=== PATIENT | male | born 2000 | race Caucasian/White ===

== ENCOUNTER 2024-03-27 06:20 | Emergency (ER) | payer OTHER ==
[~2024-03-27] VITALS: Ht 175.3 cm; Wt 66.2 kg
[~2024-03-27 06:20] MED LIST: ACET325 PO
[2024-03-27] MEDS ORDERED: IBUP600 PO (09:40)
[2024-03-27] MEDS ORDERED: CYCL10 PO (09:40)
[2024-03-27 09:50] VITALS: BP 120/80
== END 2024-03-27 09:50 | disposition home or self-care (01) ==
LOC: ER 06:20
DX: M25.512 Pain in left shoulder (principal); V89.2XXA Person injured in unspecified motor-vehicle accident, traffic, initial encounter
CPT/HCPCS: 71046; 73030; 99283-25

== ENCOUNTER 2024-07-11 10:26 | Inpatient (IN) | payer OTHER ==
[~2024-07-11] VITALS: Ht 177.8 cm; Wt 70.3 kg
[~2024-07-11 10:26] MED LIST changes: +Amoxicillin875 MG PO; +CYCL10 PO; +IBUP600 PO; +IBUP800 PO; +ONDA4ODT MM
[2024-07-11] MEDS ORDERED: Ondansetron HCl 2 MG / ML 2ML Vial IV ONE (10:50)
[2024-07-11] MEDS ORDERED: Morphine Sulfate 4 MG/1 ML Injection IV ONE (10:50)
[2024-07-11 10:55] LABS: BASOPHILS ABSOLUTE AUTO 0.03 K/mm3 (0.00-0.23); BASOPHILS PERCENT AUTO 0 % (0-2); EOSINOPHILS ABSOLUTE AUTO 0.08 K/mm3 (0.00-0.68); EOSINOPHILS PERCENT AUTO 1 % (0-6); Hematocrit 40.7 % (37.0-53.0); Hemoglobin 13.8 g/dL (13.5-17.5); IMMATURE GRAN ABSOLUTE AUTO 0.04 K/mm3 (0.00-0.10); IMMATURE GRAN PERCENT AUTO 0 % (0-1); LYMPHOCYTES ABSOLUTE AUTO 1.73 K/mm3 (0.84-5.20); LYMPHOCYTES PERCENT AUTO 14 % (21-46); MONOCYTES ABSOLUTE AUTO 1.18 K/mm3 (0.16-1.47); MONOCYTES PERCENT AUTO 10 % (4-13); Mean Corpuscular HGB 30.4 pg (26.0-34.0); Mean Corpuscular HGB Conc 33.9 g/dL (31.5-36.5); Mean Corpuscular Volume 90 fL (80-100); Mean Platelet Volume 9.8 fL (9.1-12.4); NEUTROPHILS ABSOLUTE AUTO 9.06 K/mm3 (1.96-9.15); NEUTROPHILS PERCENT AUTO 75 % (41-73); Platelet Count 227 K/mm3 (150-400); RDW Coefficient Variation 11.8 % (11.7-14.2); RDW Standard Deviation 38.5 fL (35.1-46.3); Red Blood Cell Count 4.54 M/mm3 (4.30-5.90); White Blood Cell Count 12.12 K/mm3 (4.00-11.30)
[2024-07-11 11:18] LABS: Albumin, Blood 4.5 g/dL (3.4-5.0); Albumin/Globulin Ratio 1.4 (0.8-1.8); Bilirubin, Total 1.1 mg/dL (0.1-1.0); Calcium, Blood 9.2 mg/dL (8.5-10.1); Globulin, Blood 3.2 g/dL (2.2-4.0); Potassium, Blood 3.9 mmol/L (3.5-5.5); Total Protein, Blood 7.7 g/dL (6.4-8.2)
[2024-07-11] MEDS ORDERED: Midazolam HCl 1MG / ML 2ML Vial IV ONE (11:50)
[2024-07-11] MEDS ORDERED: OxyCODONE 5 mg/Acetamin 325 mg TABLET PO ONE (12:30)
[2024-07-11] MEDS ORDERED: OxyCODONE HCL 5 MG TAB PO PRN (13:35)
[2024-07-11] MEDS ORDERED: Lactated Ringer's 1,000 ML IV SCH (13:35)
[2024-07-11] MEDS ORDERED: FLU VACC TS2024-25(6MOS UP)/PF 45 MCG/0.5 ML SYRINGE IM SCH (13:35)
[2024-07-11] MEDS ORDERED: Ondansetron HCl 2 MG / ML 2ML Vial IV PRN (13:40)
[2024-07-11] MEDS ORDERED: Ketorolac Tromethamine 15mg Vial IV PRN (13:45)
[2024-07-11 15:58] VITALS: BP 126/99
--- NOTE | 2024-07-11 16:51 | NUR ---
PT ARRIVED TO RM 212 FROM ER AT APPROXIMATELY [id number]. PAIN MANAGED UPON ARRIVAL TO THE ROOM. PT DENIES SHORTNESS OF BREATH. HE IS ALERT/ORIENTED. WALL SUCTION IN PLACE, SUCTION SET TO -20.
[2024-07-11] MEDS ORDERED: Acetaminophen 500 MG Tab PO SCH (18:00)
--- NOTE | 2024-07-11 18:44 | NUR ---
SHIFT SUMMARY CHEST TUBE REMAINS IN PLACE AND TO -20 WALL SUCTION. PT REPORTS PAIN IS WELL MANAGED WITH TYLENOL. PT IS ON TELE, HE HAS BEEN NSR EXCEPT FOR A JUNCTIONAL RHYTHM FOR APPROXIMATELY 30 SECONDS PER [employer]CT REPRESENTATIVE, PT ASYMPTOMATIC. PT USES CALL LIGHT APPROPRIATELY.
[2024-07-11] MEDS ORDERED: Chlorhexidine Mouth Care 15 ML UDC MT SCH (20:00)
[2024-07-11 20:14] VITALS: BP 115/79
[2024-07-11] MEDS ORDERED: Docusate Sodium 100 MG Cap PO SCH (21:00)
[2024-07-12 00:25] VITALS: BP 124/74
[2024-07-12 04:09] VITALS: BP 126/84
[2024-07-12 04:37] LABS: BASOPHILS ABSOLUTE AUTO 0.02 K/mm3 (0.00-0.23); BASOPHILS PERCENT AUTO 0 % (0-2); EOSINOPHILS ABSOLUTE AUTO 0.12 K/mm3 (0.00-0.68); EOSINOPHILS PERCENT AUTO 1 % (0-6); Hematocrit 36.2 % (37.0-53.0); Hemoglobin 11.9 g/dL (13.5-17.5); IMMATURE GRAN ABSOLUTE AUTO 0.02 K/mm3 (0.00-0.10); IMMATURE GRAN PERCENT AUTO 0 % (0-1); LYMPHOCYTES ABSOLUTE AUTO 2.02 K/mm3 (0.84-5.20); LYMPHOCYTES PERCENT AUTO 21 % (21-46); MONOCYTES ABSOLUTE AUTO 0.88 K/mm3 (0.16-1.47); MONOCYTES PERCENT AUTO 9 % (4-13); Mean Corpuscular HGB 30.1 pg (26.0-34.0); Mean Corpuscular HGB Conc 32.9 g/dL (31.5-36.5); Mean Corpuscular Volume 92 fL (80-100); Mean Platelet Volume 10.3 fL (9.1-12.4); NEUTROPHILS ABSOLUTE AUTO 6.72 K/mm3 (1.96-9.15); NEUTROPHILS PERCENT AUTO 69 % (41-73); Platelet Count 190 K/mm3 (150-400); RDW Coefficient Variation 11.7 % (11.7-14.2); RDW Standard Deviation 39.6 fL (35.1-46.3); Red Blood Cell Count 3.95 M/mm3 (4.30-5.90); White Blood Cell Count 9.78 K/mm3 (4.00-11.30)
[2024-07-12 05:00] LABS: Bun/Creatinine Ratio 12.4 (12.0-20.0); Calcium, Blood 8.4 mg/dL (8.5-10.1); Creatinine, Blood 0.89 mg/dL (0.60-1.20); Potassium, Blood 3.9 mmol/L (3.5-5.5)
--- NOTE | 2024-07-12 06:27 | NUR ---
SHIFT SUMMARY AOX4. VSS. SPO2 >90% ON RA. TELE SB HR 57. DENIES N/V, DIZZINESS, HITCHCOCK. REPORTS PAIN W/DEEP INSPIRATION. THORAVENT TO LUCW SET TO -20MMHG SX, NO LEAK NOTED, SCANT AMOUNT SEROSANGUINOUS DRAINAGE IN TUBBING LINE. PT REPORTS COUGING UP SM PEA SIZE CLOTS. HAS 2 UPPER TEETH WHICH HAVE FALLEN OUT, ALONG W/ABRASIONS TO INNER LIPS. SCABBED OVER ABRASION FROM FOREHEAD TO NOSE W/O ANY DRAINAGE NOTED. CALL LIGHT IN REACH.
[2024-07-12 07:08] VITALS: BP 127/88
[2024-07-12] MEDS ORDERED: Lidocaine 4% 1 Patch TOP SCH (09:00)
[2024-07-12 15:03] VITALS: BP 124/84
--- NOTE | 2024-07-12 18:59 | NUR ---
SHIFT SUMMARY PT HAS BEEN INDEPENDENT IN THE ROOM TODAY AFTER CHEST TUBE WAS PLACED TO WATER SEAL BY DR. BOWER. PT'S RESPIRATORY STATUS IS UNCHANGED. HE HAS COMPLAINED OF ORAL DISCOMFORT, PAIN MANAGED WITH TYLENOL. PT IS TOLERATING SMALL AMOUNT OF FOOD/FLUID, PO INTAKE ENCOURAGED, SOFT/BITE SIZE DIET ORDERED.
[2024-07-12 19:29] VITALS: BP 128/87
[2024-07-13 00:03] VITALS: BP 141/85
[2024-07-13] MEDS ORDERED: BENZOCAINE 20% TOP PRN ×2 (03:55→04:15)
[2024-07-13 04:18] VITALS: BP 123/80
--- NOTE | 2024-07-13 04:40 | NUR ---
SHIFT SUMMARY VSS. PT SLEPT ON AND OFF T/O THE NIGHT, PT STRUGGLED WITH ORAL PAIN. PT ADAMENTLY REFUSING NARCOTICS D/T NO BM X4 DAYS, RECIEVED ORDER FOR ORAJEL PER GEN SURG. PT WAS ABLE TO SLEEP AFTER THIS MEDIATION. PT EDUCATED ABOUT APPROPRIATE NARCOTIC AND ANTIINFLAMMATORY MEDICATION USE, AND INCREASING ORAL FLUIDS AND AMBULATION TOLLERATED TO ENCOURAGE PERISTALSIS. MINIMAL PO INTAKE NOTED, PT UNINTERESTED IN ICE. IVF INFUSING PER EMAR. THORAVENT REMAINS IN PLACE, LEFT UPPER CHEST. LUNG SOUNDS CLEAR T/O, DIMINISHED IN BASES. PT DENIES SOB OR CP, SPO2 >95% ON RA. TELE REMAINS IN PLACE- JUNCTIONAL 57. OTHERWISE, NO ACUTE EVENTS NOTED. PLAN TO ADVANCE CARE PER GEN SURG. THE PATIENT IS CURRENTLY SLEEPING, IN NO DISTRESS, CALL LIGHT IN REACH
[2024-07-13 07:52] VITALS: BP 135/88
[2024-07-13] MEDS ORDERED: TRAM50 PO (12:51)
--- NOTE | 2024-07-13 12:59 | NUR ---
DISCHARGE CT REMOVED BY DR BOWER DURING ROUNDS OVER 1 HOUR AGO. HAS BEEN UP AMBULATING IN ROOM w/ NO SOB OR CP. DRSG TO L CW WNL; NO LÁZARO. DECLINES WC & AMBULATES OUT w/ GIRLFRIEND.
== END 2024-07-13 13:00 | disposition home or self-care (01) | DRG 200 ==
LOC: ER 10:26 → SURS 12:30
PROVIDERS: Emergency Medicine; ADMIT Surgery
PROC: 0W9B30Z Drainage of Left Pleural Cavity with Drainage Device, Percutaneous Approach (ICD-10-PCS; principal; 2024-07-11)
DX: S27.0XXA Traumatic pneumothorax, initial encounter (principal); S09.0XXA Injury of blood vessels of head, not elsewhere classified, initial encounter; S22.42XA Multiple fractures of ribs, left side, initial encounter for closed fracture; S02.2XXA Fracture of nasal bones, initial encounter for closed fracture; S03.2XXA Dislocation of tooth, initial encounter; S02.5XXA Fracture of tooth (traumatic), initial encounter for closed fracture; V23.41XA Electric (assisted) bicycle driver injured in collision with car, pick-up truck or van in traffic accident, initial encounter
CPT/HCPCS: 32551; 36415; 70450; 70486; 71045; 71260; 72125; 80048; 80053; 85025; 94762; 96374; 96374-59; 96375; 96375-59; 99285-25; A9270; G0378; J1885; J2250; J2270; J2405; J7120; Q9967